=== PATIENT | male | born 2000 | race African-American/Black ===

== ENCOUNTER 2023-07-20 09:37 | Emergency (ER) | payer SELFPAY ==
[2023-07-20] MEDS ORDERED: Ibuprofen 600 MG Tab PO ONE (10:00)
== END 2023-07-20 12:03 | disposition home or self-care (01) ==
LOC: MW.ED 09:37
DX: M67.813 Other specified disorders of tendon, right shoulder (principal)
CPT/HCPCS: 73030; 99283; A9270